=== PATIENT | male | born 1980 | race Caucasian/White ===

== ENCOUNTER 2023-11-09 11:14 | Observation (INO) ==
--- NOTE | 2023-11-09 11:27 | Emergency Department Note ---
History of Present Illness General Chief complaint: Referred by Doctor Stated complaint: HEMORRHOID Time Seen by Provider: 11/09/23 11:26 History of Present Illness Maximum Pain Intensity: 8 NAME: BETTINA CUELLAR AGE: 42 SEX: M : 1980 ARRIVES VIA: Walk-In INFORMANT: Patient ED PROVIDER(S): MUMTAZ Ly, Tavares Hein, The patient is a pleasant 42-year-old male who arrives to the emergency department for evaluation of a thrombosed hemorrhoid. He reports he was seen Monday by his primary care provider and diagnosed with a thrombosed hemorrhoid, he was provided rectal hydrocortisone cream and oxycodone for pain control. He states he was told to come to the emergency department if the pain worsened. He denies any history of hemorrhoids, he denies any rectal bleeding. He denies fever, abdominal pain, nausea or vomiting. He states he had an episode of diarrhea the Monday before 01 November, where he noticed some slight blood in his diarrhea. He states after that time he was pushing more than normal and attempt to have a bowel movement. He states his symptoms resolved, until this past week. Home Medications Medication Instructions Recorded Confirmed Type atorvastatin 20 mg tablet 20 mg PO QPM #90 tabs 05/18/23 11/09/23 Rx telmisartan 40 mg tablet 40 mg PO DAILY #90 tabs 10/13/23 11/09/23 Rx tirzepatide (weight loss) 2.5 2.5 mg subcut WK 10/24/23 11/09/23 History mg/0.5 mL subcutaneous pen injector (Zepbound) hydrocortisone 2.5 % topical cream 1 applic [place] QID PRN hemorrhoids 11/07/23 11/09/23 Rx with perineal applicator #30 grams (Proctozone-HC) hydrocodone 5 mg-acetaminophen 325 1 - 2 tab PO UD PRN pain 11/09/23 11/09/23 History mg tablet omega 9-rjd-pbt-fish oil 1,200 mg 1 cap PO DAILY 11/09/23 11/09/23 History (144 mg-216 mg) capsule (Fish Oil) Allergies Allergy/AdvReac Type Severity Reaction Status Date / Time piperacillin [From Zosyn] Allergy Severe Verified 11/09/23 14:43 tazobactam [From Zosyn] Allergy Severe Verified 11/09/23 14:43 Sulfa (Sulfonamide Allergy Verified 11/09/23 14:16 Antibiotics) Past Med/Surg History Problem List (Updated 11/09/23 @ 17:38 by MUMTAZ Solis) Pain, rectum (Acute) Perianal abscess (Acute) Hypertension Unwanted fertility Anxiety (Acute) Dyslipidemia (Acute) Impaired fasting glucose (Acute) Obesity (Acute) Medical History Motion sickness Surgical History H/O vasectomy 08/2023 Family History Father Hypertension Grandfather Colon cancer Prostate cancer Hypertension Grandmother Diabetes Hypertension Denies family history of Ovarian cancer Myocardial infarction Breast cancer Social History Smoking Status: Never smoker Tobacco Type: Cigarettes Age Started Using Tobacco: 20; Age Quit Using Tobacco: 28; packs per day: 0.75; Second Hand Exposure: No; Do You Dip or Chew Tobacco: No; Hx Alcohol Use: Yes Alcohol Intake Frequency Comment: SOCIAL Hx Substance Use: No Preferred Language: Luxembourgish Communication Ability: Effective Visual Impairment: No Limitations Hearing Ability: Normal Pantographer Required: No Beliefs That Will Affect Care: None marital status: Current Living Situation: Family current occupational status: employed current occupation: [employer] How many Children do You have: 2 Feels Safe at Home: Yes Childhood Exposure to Second-Hand Smoke: No Diet: other Diet Comment: WEIGHT WATCHERS caffeine: No during the past year weight has: remained stable Dental Care, Regularly: Yes Physical Activity Frequency: Daily Seatbelt Use: always Sunscreen Use: Yes Physical Exam Vital Signs Vital Signs - 24 hr 11/09/23 11:19 11/09/23 12:08 11/09/23 13:45 Temperature 36.2 C L Temperature Source Temporal Artery Scan Pulse Rate 113 H Pulse Rate [Right Finger] 103 H 99 H Pulse Rhythm Regular Pulse Rhythm [Right Finger] Regular Pulse Strength Normal Pulse Strength [Right Finger] Normal Respiratory Rate 16 16 18 Respiratory Effort / Characteristics Non-Labored Non-Labored Spontaneous Non-Labored Respiratory Depth Normal Normal Normal Respiratory Pattern Regular Regular Regular Blood Pressure 113/74 Blood Pressure [Left Arm] 121/70 128/73 Blood Pressure Mean 87 Blood Pressure Mean [Left Arm] 87 91 Blood Pressure Position [Left Arm] Right Lateral Lying Pulse Oximetry 99 98 97 Oxygen Delivery Method Room Air Room Air Room Air Sepsis Recent Fever Within 48 Hours No Sepsis New/Unexplained Change in Mental Status N/A Sepsis Action Taken by Nursing No Action Required 11/09/23 17:15 Temperature Temperature Source Pulse Rate Pulse Rate [Right Finger] 106 H Pulse Rhythm Pulse Rhythm [Right Finger] Regular Pulse Strength Pulse Strength [Right Finger] Respiratory Rate 18 Respiratory Effort / Characteristics Respiratory Depth Normal Respiratory Pattern Blood Pressure Blood Pressure [Left Arm] 127/78 Blood Pressure Mean Blood Pressure Mean [Left Arm] 94 Blood Pressure Position [Left Arm] Pulse Oximetry 96 Oxygen Delivery Method Sepsis Recent Fever Within 48 Hours Sepsis New/Unexplained Change in Mental Status Sepsis Action Taken by Nursing VITALS: Vitals are noted on the nurse's note and reviewed by myself. Vital signs stable. GENERAL: 42-year-old male, in no acute distress, nondiaphoretic, well-developed well-nourished. SKIN: There is an area of induration present lateral to the left side of the rectum, in the buttocks. No visible hemorrhoid present, no bleeding present, no drainage present. HEAD: Normocephalic atraumatic. HEART: Regular rate and rhythm without murmurs gallops or rubs. LUNGS: Clear to auscultation bilaterally without wheezes, rales or rhonchi. No retractions or accessory muscle use. ABDOMEN: Positive bowel sounds x 4. Soft, nontender, without masses or organomegaly. Simon sign negative. No guarding or rebound tenderness. MUSCULOSKELETAL: No muscle atrophy, erythema, or edema noted. Strength 5/5 throughout. NEURO: Patient was alert and oriented to person place and time. No focal neurological deficits. Course Administered Medications Discontinued Medications Diphenhydramine HCl (Diphenhydramine 50 Mg/Ml Vial) Confirm Administered Dose 50 mg .ROUTE .STTapPress-MED ONE Stop: 11/09/23 14:41 Last Admin: 11/09/23 14:42 Dose: 50 mg Documented By: NAY Diphenhydramine HCl (Diphenhydramine 50 Mg/Ml Vial) 50 mg IV NOW STA Stop: 11/09/23 14:43 Last Admin: 11/09/23 14:47 Dose: Not Given Documented By: NAY Famotidine (Famotidine 20mg/5ml Iv Push) Confirm Administered Dose 20 mg IV .STK-MED ONE Stop: 11/09/23 14:41 Last Admin: 11/09/23 14:42 Dose: 20 mg Documented By: NAY Sodium Chloride (Nss) 1,000 mls @ 999 mls/hr IV .Q1H1M ONE Stop: 11/09/23 12:55 Last Infusion: 11/09/23 12:40 Dose: Infused Documented By: Admin: 11/09/23 12:13 Dose: 999 mls/hr Documented By: MICKY Acetaminophen (Ofirmev) 1,000 mg in 100 mls @ 400 mls/hr IV NOW STA Stop: 11/09/23 12:09 Last Infusion: 11/09/23 12:39 Dose: Infused Documented By: Admin: 11/09/23 12:14 Dose: 400 mls/hr Documented By: MICKY Piperacillin Sod/Tazobactam Sod (Zosyn) 4.5 gm in 100 mls @ 200 mls/hr IV NOW ONE Stop: 11/09/23 14:40 Last Infusion: 11/09/23 14:25 Dose: 0 mls/hr Documented By: Admin: 11/09/23 14:22 Dose: 200 mls/hr Documented By: KAMILLE Famotidine (Pepcid 20mg Iv Push) 20 mg in 5 mls @ 2.5 mls/min IV NOW STA Stop: 11/09/23 14:43 Last Admin: 11/09/23 14:47 Dose: Not Given Documented By: NAY Ceftriaxone Sodium (Rocephin) 2,000 mg in 50 mls @ 100 mls/hr IV NOW STA Stop: 11/09/23 15:26 Last Infusion: 11/09/23 15:50 Dose: Infused Documented By: Admin: 11/09/23 15:22 Dose: 100 mls/hr Documented By: MEME Metronidazole (Flagyl) 500 mg in 100 mls @ 100 mls/hr IV NOW STA; Protocol Stop: 11/09/23 15:56 Last Admin: 11/09/23 15:47 Dose: 100 mls/hr Documented By: AUREA Ioversol (Optiray 320 100ml) 94 ml IV ONCE ONE Stop: 11/09/23 13:24 Last Admin: 11/09/23 13:18 Dose: 94 ml Documented By: ROSARIO Ketorolac Tromethamine (Ketorolac Tromethamine 15 Mg/Ml Vial) 15 mg IV NOW ONE Stop: 11/09/23 11:56 Last Admin: 11/09/23 12:13 Dose: 15 mg Documented By: MICKY Methylprednisolone (Methylprednisolone 125 Mg/2 Ml Vial) 125 mg IV NOW STA Stop: 11/09/23 14:43 Last Admin: 11/09/23 14:44 Dose: 125 mg Documented By: NAY Medical Decision Making Differential Diagnosis Rectal abscess, cellulitis, infection, mass, fistula, hemorrhoid, as well as other pathologies Medical Records Attestation: I reviewed the patient's medical records. Home Medications Current Medication List: was personally reviewed by me Laboratory Data Attestation: I reviewed the patient's lab results. CBC shows a slight leukocytosis, stable hemoglobin and hematocrit, CMP shows no significant electrolyte abnormalities, urinalysis negative for infection. 11/09/23 12:02 11/09/23 12:02 Lab Results 11/09/23 11/09/23 Range/Units 12:02 12:42 WBC 12.80 H (4.8-10.8) K/ul RBC 4.98 (4.70-6.10) M/uL Hgb 14.4 (14.0-18.0) g/dl Hct 41.9 L (42.0-52.0) % MCV 84.1 (80.0-100.0) fL MCH 28.9 (25.0-34.0) pg MCHC 34.4 (32.0-36.0) g/dL RDW Std Deviation 38.9 (36.4-46.3) fL RDW Coeff of Christian 12.8 (11.5-14.5) % Plt Count 215 (130-400) K/uL MPV 10.7 (9.4-12.4) fL Immature Gran % (Auto) 0.3 % Neut % (Auto) 80.6 % Lymph % (Auto) 7.8 % [place] % (Auto) 10.8 % Eos % (Auto) 0.3 % Baso % (Auto) 0.2 % Neut # (Auto) 10.31 H (1.40-6.50) K/uL Lymph # (Auto) 1.00 L (1.20-3.40) K/uL [place] # (Auto) 1.38 H (0.11-0.59) K/uL Eos # (Auto) 0.04 (0.00-0.50) K/uL Baso # (Auto) 0.03 (0.00-0.20) K/uL Immature Gran # (Auto) 0.04 (0.01-0.20) K/uL Sodium 137 (136-145) mmol/L Potassium 4.0 (3.5-5.1) mmol/L Chloride 102 (98-107) mmol/L Carbon Dioxide 26 (21-32) mmol/L Anion Gap 9 (3-11) BUN 19 (6-23) mg/dl Creatinine 1.15 (0.6-1.4) mg/dl Est Cr Clr Drug Dosing 107.1 ml/min Est GFR ( Amer) 91.7 ml/min Est GFR (Non-Af Amer) 79.2 ml/min BUN/Creatinine Ratio 16.5 (10-20) Glucose 101 H (70-99(Fasting)) mg/dl Calcium 9.8 (8.6-10.3) mg/dl Total Bilirubin 0.8 (0.2-1.0) mg/dl AST 18 (13-39) U/L ALT 19 (7-52) U/L Alkaline Phosphatase 69 (34-104) U/L Total Protein 7.8 (6.0-8.3) gm/dl Albumin 4.1 (3.4-5.0) gm/dl Globulin 3.7 (2.5-4.0) gm/dl Albumin/Globulin Ratio 1.1 (0.9-2) Urine Color Yellow Urine Appearance Clear (Clear) Urine pH 5.5 (4.5-7.5) Ur Specific [place] 1.026 (1.000-1.030) Urine Protein Trace H (Negative) Urine Glucose (UA) Negative (Negative) Urine Ketones 1+ H (Negative) Urine Blood Negative (Negative) Urine Nitrite Negative (Negative) Urine Bilirubin Negative (Negative) Urine Urobilinogen Negative (Negative) Ur Leukocyte Esterase Negative (Negative) Urine WBC (Auto) 0-5 (0-5) /hpf Urine RBC (Auto) 0-2 (0-2) /hpf U Hyaline Cast (Auto) 3-5 H (0-2) /lpf U Epithel Cells (Auto) 0-2 (0-2) /hpf Urine Bacteria (Auto) None Seen (None Seen) Imaging Data Attestation: I personally reviewed and interpreted this imaging study as follows: My Impression: Perirectal abscess present, to the left of the rectum. Will await formal radiology report. Radiologist's Impression: Pelvis CT 11/09/23 11:55 CT pelvis w/IV con only HISTORY: 42 years-old Male r/o rectal abscess acute rectal pain with possible rectal abscess. COMPARISON: None TECHNIQUE: Multiple axial CT images of the pelvis were obtained with IV contrast. A dose lowering technique was used consistent with the principals of VALERIY. FINDINGS: Images intrapelvic structures are unremarkable. Normal appendix. Mild colonic diverticulosis. No free fluid. Mild prostatomegaly. Surgical clips of the scrotum. There is a peripherally enhancing perianal fluid collection on image 197 series 3 measuring 5.8 x 2.0 x 4.2 cm extending towards the left medial gluteal fold. Possible underlying perianal fistula. Moderate associated cellulitis. IMPRESSION: 1. 5.8 cm perianal abscess with possible associated perianal fistula. 2. No supralevator extension. ACT 112: Negative or not required by law. The above report was generated using voice recognition software. It may contain grammatical, syntax or spelling errors. Electronically signed by: Jose Luis Bhatt M.D. 11/09/2023 1:52 PM Blood Pressure Blood Pressure Findings: Normal blood pressure MDM Narrative The patient is a pleasant 42-year-old male who arrives to the emergency department with his for the above-stated complaint. Upon examination with the use of a clinical exercise specialist, the patient has no visible hemorrhoid present. There does appear to be an area of induration just left of the rectum, with a surrounding cellulitis. A saline lock was established, CBC, CMP, urinalysis obtained. CBC shows no leukocytosis, stable hemoglobin and hematocrit, CMP is unremarkable, urinalysis is negative for infection. CT imaging of the pelvis with IV contrast was obtained, which shows a 5.9 cm perirectal abscess with likely perirectal fistula. Is able to contact general surgery to evaluate the patient. In the interim while awaiting a return call I started the patient on IV Zosyn. Within 2 minutes of beginning administration the patient began to have a severe allergic reaction. Nursing staff alerted me immediately. The patient was administered IV Benadryl, IV Pepcid, and IV Solu-Medrol. Within a few moments the reaction began to resolve. The patient had no airway involvement, angioedema, or tongue swelling. I did alert my attending, Dr. Hein. He was able to evaluate the patient at bedside to determine if administration of epi was warranted. The patient did not require epi administration, as he was having resolution of symptoms without. Antibiotic administration was changed to Rocephin and metronidazole. Dr. Nicolas from general surgery did agree to accept the patient. Please refer to his documentation for further patient care. At transition of care the patient had stable vital signs, and resolution of the allergic reaction. The patient's case was discussed with Dr. Hein, who agreed with my evaluation and treatment plan. Continuous rn embedded: Order was placed for continuous rn embedded. Patient was placed on the rn embedded. Patient was noted to be in sinus tachycardia at an initial rate of 113 bpm. Impression & Plan Perianal abscess, Pain, rectum Discharge Plan Visit Data Chief Complaint: Referred by Doctor Stated Complaint: HEMORRHOID ED Provider: Tavares Hein ED Midlevel Provider: Jihan Glasgow Discharge Problem: Perianal abscess, Pain, rectum Forms Stand Alone Forms: [facility] [employer] Prescriptions Prescriptions: No Action telmisartan 40 mg tablet 40 mg PO DAILY Qty: 90 2RF atorvastatin 20 mg tablet 20 mg PO QPM Qty: 90 2RF hydrocortisone [Proctozone-HC] 2.5 % cream with perineal applicator 1 applic IL QID PRN (Reason: hemorrhoids) Qty: 30 0RF Zepbound 2.5 mg/0.5 mL pen injector 2.5 mg subcut WK Rx Instructions: Monday hydrocodone-acetaminophen 5-325 mg tablet 1 - 2 tab PO UD PRN (Reason: pain) Rx Instructions: 1-2 tabs PO Q4-6 HRS PRN; omega 8-chm-dho-fish oil [Fish Oil] 1,200 (144-216) mg Capsule 1 cap PO DAILY Referrals Referrals: Cristian Slade CRNP [Primary Care Provider] -
[2023-11-09] MEDS: SODIUM CHLORIDE 0.9% 1,000 ML IV ONE (12:13)
[2023-11-09] MEDS: KETOROLAC TROMETHAMINE 15 MG/ML VIAL IV ONE (12:13)
[2023-11-09] MEDS: ACETAMINOPHEN 1,000 MG/100 ML VIAL IV STA (12:14)
[2023-11-09 12:27] LABS: Basophils # (auto) 0.03 K/uL (0.00-0.20); Basophils % (auto) 0.2 %; Eosinophils # (auto) 0.04 K/uL (0.00-0.50); Eosinophils % (auto) 0.3 %; Hematocrit (blood only) 41.9 % (42.0-52.0); Hemoglobin 14.4 g/dl (14.0-18.0); Immature Granulocytes # (auto) 0.04 K/uL (0.01-0.20); Immature Granulocytes % (auto) 0.3 %; Lymphocytes % (auto) 7.8 %; Mean Corpuscular Hemoglobin 28.9 pg (25.0-34.0); Mean Corpuscular Hgb Conc 34.4 g/dL (32.0-36.0); Mean Corpuscular Volume 84.1 fL (80.0-100.0); Mean Platelet Volume 10.7 fL (9.4-12.4); Monocytes # (auto) 1.38 K/uL (0.11-0.59); Monocytes % (auto) 10.8 %; Neutrophils # (auto) 10.31 K/uL (1.40-6.50); Neutrophils % (auto) 80.6 %; Platelet Count 215 K/uL (130-400); RDW Coefficient of Variation 12.8 % (11.5-14.5); RDW Standard Deviation 38.9 fL (36.4-46.3); Red Blood Count 4.98 M/uL (4.70-6.10)
[2023-11-09 12:42] LABS: Albumin Globulin Ratio 1.1 (0.9-2); Albumin Level 4.1 gm/dl (3.4-5.0); BUN Creatinine Ratio 16.5 (10-20); Bilirubin,Total 0.8 mg/dl (0.2-1.0); Calcium 9.8 mg/dl (8.6-10.3); Creatinine Clr Calc Pharmacy 107.1 ml/min; Est GFR (African American) 91.7 ml/min; Est GFR (Non-African American) 79.2 ml/min; Globulin 3.7 gm/dl (2.5-4.0); Total Protein 7.8 gm/dl (6.0-8.3)
[2023-11-09 12:55] LABS: Appearance Urine Clear (Clear); Bacteria Urine Automated None Seen (None Seen); Bilirubin Urine Negative (Negative); Blood Urine Negative (Negative); Color Urine Yellow; Epithelial Cell Urine Auto 0-2 /hpf (0-2); Glucose Urine UA Negative (Negative); Ketones Urine 1+ (Negative); Leukocyte Esterase Urine Negative (Negative); Nitrite Urine Negative (Negative); Protein Urine Trace (Negative); RBC Urine Automated 0-2 /hpf (0-2); Specific Gravity Urine 1.026 (1.000-1.030); Urobilinogen Urine Negative (Negative); WBC Urine Automated 0-5 /hpf (0-5); pH Urine 5.5 (4.5-7.5)
[2023-11-09] MEDS: OPTIRAY 320 100ml IV ONE (13:18)
--- NOTE | 2023-11-09 13:53 | CT Scan Report ---
CT pelvis w/IV con only HISTORY: 42 years-old Male r/o rectal abscess acute rectal pain with possible rectal abscess. COMPARISON: None TECHNIQUE: Multiple axial CT images of the pelvis were obtained with IV contrast. A dose lowering bhavik hnique was used consistent with the principals of VALERIY. FINDINGS: Images intrapelvic structures are unremarkable. Normal appendix. Mild colonic diverticulosis. No free fluid. Mild prostatomegaly. Surgical clips of the scrotum. There is a peripherally enhancing perianal fluid collection on image 197 series 3 measuring 5.8 x 2.0 x 4.2 cm extending towards the left medial gluteal fold. Possible underlying perianal fistula. Moder ate associated cellulitis. IMPRESSION: 1. 5.8 cm perianal abscess with possible associated perianal fistula. 2. No supralevator extension. ACT 112: Negative or not required by law. The above report was generated using voice recognition software. It may contain grammatical, syntax o r spelling errors. Electronically signed by: Jose Luis Bhatt M.D. 11/09/2023 1:52 PM
[2023-11-09] MEDS: PIPERACILLIN/TAZOBACTAM 4.5 GM/100 ML BAG IV ONE (14:22)
[2023-11-09] MEDS: FAMOTIDINE 20MG/5ML IV PUSH IV ONE (14:42)
[2023-11-09] MEDS: diphenhydrAMINE 50 MG/ML VIAL ONE (14:42)
[2023-11-09] MEDS: methylPREDNISolone 125 MG/2 ML VIAL IV STA (14:44)
[2023-11-09] MEDS: FAMOTIDINE 20MG IV PUSH 20 MG/5 ML SYR IV STA (14:47)
[2023-11-09] MEDS: diphenhydrAMINE 50 MG/ML VIAL IV STA (14:47)
--- NOTE | 2023-11-09 14:50 | History & Physical Report ---
Date of Service November 09, 2023 Assessment & Plan (1) Perianal abscess: Plan: Patient presented to the [facility] ER today with c/o rectal pain that has been present since last Monday. He reports the pain has progressively gotten worse over the last few days and has been having associated chills. He denies constipation, change in bowel habits, fever, nausea, vomiting, drainage from rectum or bleeding. CT scan pelvis reading 5.8 cm perianal abscess with possible associated perianal fistula. The patient has an elevated wbc count at 12. On exam left side rectum is more tender and painful, firm and warm to touch. Recommending the patient have an incision and drainage in the operating room with Dr. Nicolas. Procedure explained and questions answered. The patient would like to proceed with surgical intervention. He was given zosyn in the ER. Keep NPO IV Fluids for hydration IV analgesic Timing of procedure will depend on schedule of the OR , most likely will be later this afternoon. as above. discussed options/risks. questions answered. will proceed with incision and drainage today. History of Present Illness Chief Complaint: perianal abscess Primary Care Provider: MUMTAZ Velazquez Patient is a pleasant 42 yo male with PMH HTN, HLD , obesity that presented to the [facility] ER today with c/o rectal pain that has been present since last Monday. He reports the pain has progressivly gotten worse over the last few days and has been having associated chills. He denies constipation, change in bowel habits, fever, nausea, vomiting, drainage from rectum or bleeding, has not had a colonoscopy. He has been NPO since yesterday and took a sip of water at 1100 today. Does not take blood thinners. Allergies Allergy/AdvReac Type Severity Reaction Status Date / Time piperacillin [From Zosyn] Allergy Severe Verified 11/09/23 14:43 tazobactam [From Zosyn] Allergy Severe Verified 11/09/23 14:43 Sulfa (Sulfonamide Allergy Verified 11/09/23 14:16 Antibiotics) Home Medications Medication Instructions Recorded Confirmed Type atorvastatin 20 mg tablet 20 mg PO QPM #90 tabs 05/18/23 11/09/23 Rx telmisartan 40 mg tablet 40 mg PO DAILY #90 tabs 10/13/23 11/09/23 Rx tirzepatide (weight loss) 2.5 2.5 mg subcut WK 10/24/23 11/09/23 History mg/0.5 mL subcutaneous pen injector (Zepbound) hydrocortisone 2.5 % topical cream 1 applic [place] QID PRN hemorrhoids 11/07/23 11/09/23 Rx with perineal applicator #30 grams (Proctozone-HC) hydrocodone 5 mg-acetaminophen 325 1 - 2 tab PO UD PRN pain 11/09/23 11/09/23 History mg tablet omega 4-cfu-dzd-fish oil 1,200 mg 1 cap PO DAILY 11/09/23 11/09/23 History (144 mg-216 mg) capsule (Fish Oil) Past Med/Surg History Problem List (Updated 11/09/23 @ 14:43 by MUMTAZ Lugo) Perianal abscess Hypertension Unwanted fertility Anxiety (Acute) Dyslipidemia (Acute) Impaired fasting glucose (Acute) Obesity (Acute) Medical History Motion sickness Surgical History H/O vasectomy 08/2023 Family History Father Hypertension Grandfather Colon cancer Prostate cancer Hypertension Grandmother Diabetes Hypertension Denies family history of Ovarian cancer Myocardial infarction Breast cancer Social History Smoking Status: Never smoker Tobacco Type: Cigarettes Age Started Using Tobacco: 20; Age Quit Using Tobacco: 28; packs per day: 0.75; Second Hand Exposure: No; Do You Dip or Chew Tobacco: No; Hx Alcohol Use: Yes Alcohol Intake Frequency Comment: SOCIAL Hx Substance Use: No Preferred Language: Belarusian Communication Ability: Effective Visual Impairment: No Limitations Hearing Ability: Normal Helicopter Utility Aircrewman Required: No Beliefs That Will Affect Care: None marital status: Current Living Situation: Family current occupational status: employed current occupation: [employer] How many Children do You have: 2 Feels Safe at Home: Yes Childhood Exposure to Second-Hand Smoke: No Diet: other Diet Comment: WEIGHT WATCHERS caffeine: No during the past year weight has: remained stable Dental Care, Regularly: Yes Physical Activity Frequency: Daily Seatbelt Use: always Sunscreen Use: Yes Review of Systems Constitutional: + chills; no fever Respiratory: no cough and no dyspnea Cardiovascular: no chest pain Gastrointestinal: no abdominal pain, no nausea and no vomiting Musculoskeletal: no muscle weakness Integumentary: no rash Physical Exam Constitutional: well developed, cooperative and comfortable; no acute distress Respiratory: normal respiratory effort and able to speak in complete sentences; no respiratory distress Cardiovascular: Rate/Rhythm: + tachycardic (99) Gastrointestinal (Abdomen): Inspection/Auscultation: abdomen not distended Rectal Exam: + rectal tenderness; no hemorrhoids Musculoskeletal: no cyanosis or clubbing, extremities motor strength 5/5 Results & Data Results & Data Vital Signs (Past 12 Hours) Vital Signs Temp Pulse Pulse Resp BP BP Pulse Ox 11/09/23 13:45 99 H 18 128/73 97 11/09/23 12:08 103 H 16 121/70 98 11/09/23 11:19 97.2 F L 113 H 16 113/74 99 O2 Del Method 11/09/23 13:45 Room Air 11/09/23 12:08 Room Air 11/09/23 11:19 Room Air Diagnostic Findings [place], [place] [phone] CT Scan Report Patient: BETTINA CUELLAR Admit Date: 11/09/23 MR#: [id number] Address1: [facility] [address] KELLER Acct ID:[id number] Address2: Date: 1980 [facility] Zip: [place] [address] Age: 42 Location: ED Sex: M Room/Bed: Att Phy: Diagnosis: HEMORRHOID Isabela Phy: Cristian Slade CRNP Service Date: 11/09/23 [facility] Phy: Interpreting Phy: Jose Luis Renae Phy: Ordering Phy: Jihan Glasgow CRNP cc: ~ CT pelvis w/IV con only HISTORY: 42 years-old Male r/o rectal abscess acute rectal pain with possible rectal abscess. COMPARISON: None TECHNIQUE: Multiple axial CT images of the pelvis were obtained with IV contrast. A dose lowering technique was used consistent with the principals of A CASSIE. FINDINGS: Images intrapelvic structures are unremarkable. Normal appendix. Mild colonic diverticulosis. No free fluid. Mild prostatomegaly. Surgical clips of the scrotum. There is a peripherally enhancing perianal fluid collection on image 197 series 3 measuring 5.8 x 2.0 x 4.2 cm extending towards the left medial gluteal fold. Possible underlying perianal fistula. Moderate associated cellulitis. IMPRESSION: 1. 5.8 cm perianal abscess with possible associated perianal fistula. 2. No supralevator extension. ACT 112: Negative or not required by law. The above report was generated using voice recognition software. It may contain grammatical, syntax or spelling errors. Electronically signed by: Jose Luis Bhatt M.D. 11/09/2023 1:52 PM Dictated: 11/09/23 1349 Transcribed: 11/09/231348 CBC w Diff Results Results CBC w Diff Results: RBC 4.98 M/uL (4.70-6.10) 11/09/23 WBC 12.80 K/ul (4.8-10.8) H 11/09/23 Hgb 14.4 g/dl (14.0-18.0) 11/09/23 Hct 41.9 % (42.0-52.0) L 11/09/23 MCV 84.1 fL (80.0-100.0) 11/09/23 MCH 28.9 pg (25.0-34.0) 11/09/23 MCHC 34.4 g/dL (32.0-36.0) 11/09/23 RDW Standard Deviation 38.9 fL (36.4-46.3) 11/09/23 RDW Coefficient of Variation 12.8 % (11.5-14.5) 11/09/23 Plt Count 215 K/uL (130-400) 11/09/23 MPV 10.7 fL (9.4-12.4) 11/09/23 Neutrophils (%) (Auto) 80.6 % 11/09/23 Lymphocytes (%) (Auto) 7.8 % 11/09/23 Monocytes # (Auto) 1.38 K/uL (0.11-0.59) H 11/09/23 Eosinophils # (Auto) 0.04 K/uL (0.00-0.50) 11/09/23 Immature Granulocyte % (Auto) 0.3 % 11/09/23 Neutrophils # (Auto) 10.31 K/uL (1.40-6.50) H 11/09/23 Lymphocytes # (Auto) 1.00 K/uL (1.20-3.40) L 11/09/23 Monocytes # (Auto) 1.38 K/uL (0.11-0.59) H 11/09/23 Eosinophils # (Auto) 0.04 K/uL (0.00-0.50) 11/09/23 Basophils # (Auto) 0.03 K/uL (0.00-0.20) 11/09/23 Immature Granulocyte # (Auto) 0.04 K/uL (0.01-0.20) 4 PG Care Time/CCT Total # of Minutes Spent Total Time Spent with Patient: Total time spent is greater than 50% in coordination of care (as documented) at patient's floor/unit and/or counseling patient: Coding Level of Care Code 88289 INT INP/OBS CARE 140MIN Diagnoses Perianal abscess K61.0
--- NOTE | 2023-11-09 14:57 | Emergency Department Note ---
ED Visit Note Staff note: I have seen and examined this patient. I have discussed this case with my PA and generally agree with the ED note and findings. Patient received IV Zosyn for perianal abscess with questionable fistula. General surgery was consulted and awaiting their recommendations. Patient broke out in a rash 2 minutes after receiving the IV Zosyn. Only previous allergy was to sulfa. He broke out in diffuse erythema. He denies any itching. No trouble breathing or swallowing. He was given 125 Solu-Medrol, IV Pepcid and 50 mg of Benadryl IV as well as IV fluids. He was evaluated initially upon this occurring and 5 minutes following which she notes his symptoms are improving significantly. He still has no trouble breathing or swallowing. He will continue to be monitored closely.'s please see her note for further details. Will hold on epinephrine at this time. .
[2023-11-09] MEDS: cefTRIAXone SODIUM 2,000 MG/50 ML BAG IV STA (15:22)
[2023-11-09] MEDS: metroNIDAZOLE 500 MG/100 ML BAG IV STA (15:47)
--- NOTE | 2023-11-09 17:57 | Anesthesiology Consultation ---
Date of Service November 09, 2023 Assessment & Plan Chart Review Chart Review: Acceptable Risk for Surgery and Patient NOT seen in Pre Admission Testing Consults Requested none History Surgery Operation Date: 11/09/23 11:10 Proposed Procedures p Perianal Abscess Incision and Drainage - Cristian Nicolas DO Height/Weight Height: 5 ft 9 in Weight: 115.6 kg Allergies Allergy/AdvReac Type Severity Reaction Status Date / Time piperacillin [From Zosyn] Allergy Severe Verified 11/09/23 14:43 tazobactam [From Zosyn] Allergy Severe Verified 11/09/23 14:43 Sulfa (Sulfonamide Allergy Verified 11/09/23 14:16 Antibiotics) Medications Home Medications Medication Instructions Recorded Confirmed Last Taken atorvastatin 20 mg tablet 20 mg PO QPM #90 tabs 05/18/23 11/09/23 11/08/23 telmisartan 40 mg tablet 40 mg PO DAILY #90 tabs 10/13/23 11/09/23 11/09/23 tirzepatide (weight loss) 2.5 2.5 mg subcut WK 10/24/23 11/09/23 11/03/23 mg/0.5 mL subcutaneous pen injector (Zepbound) hydrocortisone 2.5 % topical cream 1 applic [place] QID PRN hemorrhoids 11/07/23 11/09/23 11/09/23 with perineal applicator #30 grams (Proctozone-HC) hydrocodone 5 mg-acetaminophen 325 1 - 2 tab PO UD PRN pain 11/09/23 11/09/23 11/08/23 mg tablet omega 5-zhg-myv-fish oil 1,200 mg 1 cap PO DAILY 11/09/23 11/09/23 11/09/23 (144 mg-216 mg) capsule (Fish Oil) Past Medical History Medical History Motion sickness Past Family History Family History Father Hypertension Grandfather Colon cancer Prostate cancer Hypertension Grandmother Diabetes Hypertension Denies family history of Ovarian cancer Myocardial infarction Breast cancer Past Surgical History Surgical History H/O vasectomy 08/2023 Social History Smoking Status: Never smoker Do You Dip or Chew Tobacco: No Hx Alcohol Use: Yes Hx Substance Use: No Review of Systems Constitutional: + chills; no fever Respiratory: no cough and no dyspnea Cardiovascular: no chest pain Gastrointestinal: no abdominal pain, no nausea and no vomiting Musculoskeletal: no muscle weakness Integumentary: no rash Physical Exam Vital Signs Last Vital Signs Temp 36.2 C L 11/09/23 11:19 Pulse 106 H 11/09/23 17:15 Resp 18 11/09/23 17:15 BP 127/78 11/09/23 17:15 Pulse Ox 96 11/09/23 17:15 O2 Del Method Room Air 11/09/23 13:45 Constitutional well developed, cooperative and comfortable; no acute distress Respiratory normal respiratory effort and able to speak in complete sentences; no respiratory distress Cardiovascular Rate/Rhythm: + tachycardic (99) Gastrointestinal (Abdomen) Inspection/Auscultation: abdomen not distended Rectal Exam: + rectal tenderness; no hemorrhoids Musculoskeletal no cyanosis or clubbing, extremities motor strength 5/5 Testing Laboratory Results 11/09/23 12:02 11/09/23 12:02 Urine Color Yellow 11/09/23 12:42 Urine Appearance Clear (Clear) 11/09/23 12:42 Urine pH 5.5 (4.5-7.5) 11/09/23 12:42 Ur Specific [place] 1.026 (1.000-1.030) 11/09/23 12:42 Urine Protein Trace (Negative) H 11/09/23 12:42 Urine Glucose (UA) Negative (Negative) 11/09/23 12:42 Urine Ketones 1+ (Negative) H 11/09/23 12:42 Urine Nitrite Negative (Negative) 11/09/23 12:42 Ur Leukocyte Esterase Negative (Negative) 11/09/23 12:42 Urine WBC (Auto) 0-5 /hpf (0-5) 11/09/23 12:42 Urine RBC (Auto) 0-2 /hpf (0-2) 11/09/23 12:42 U Hyaline Cast (Auto) 3-5 /lpf (0-2) H 11/09/23 12:42 U Epithel Cells (Auto) 0-2 /hpf (0-2) 11/09/23 12:42 Urine Bacteria (Auto) None Seen (None Seen) 11/09/23 12:42
[2023-11-09] MEDS ORDERED: fentaNYL citrate PF 100 MCG/2 ML VIAL ONE (20:14)
[2023-11-09] MEDS ORDERED: ONDANSETRON INJ 2 MG/ML 2 ML VIAL ONE (20:30)
[2023-11-09] MEDS: CLINDAMYCIN/D5W 900 MG/50 ML BAG IV SCH (20:39)
[2023-11-09] MEDS: BUPIVACAINE/EPINEPHRINE 0.5% MPF 1:200,000 30 ML VIAL ONE (20:55)
--- NOTE | 2023-11-09 21:14 | Operative Report ---
PG Post Operative Report Pre & Post Diagnosis Operation Date: 11/09/23 11:10 Pre-Op Diagnosis: Perianal Abscess Post-Op Diagnosis: Perianal Abscess I identified the patient and participated in the time-out.: Yes Procedure Operation Date: 11/09/23 11:10 Actual Procedures p Perianal Abscess Incision and Drainage(Not Applicable) - Cristian Nicolas DO Surgeon Cristian Nicolas DO Assistant Buyer n/a Estimated Blood Loss 25 Findings Consistent with Post-Op Diagnosis Specimens abcess fluid for gram stain/culture Description of Procedure After informed consent was obtained the patient was taken to the operating room and placed in supine position. After successful placement of a laryngeal mask airway the patient was placed into a high lithotomy position. The rectum and perineum were sterilely prepped and draped in usual fashion. The abscess itself was not truly palpable. I therefore used a spinal needle to access the cavity. I withdrew ambriz purulent fluid some of which was sent for Gram stain culture and sensitivity. I then used a 15 blade scalpel to make a linear incision directly over the site of the needlestick. Cautery was used to carry this through the initial subcutaneous tissue. I then used finger fractionation to enter the cavity. I did use a finder needle to continue to access the cavity itself as it was quite deep. The majority of the fluid I aspirated with a syringe. Once I could no longer aspirate any fluid I then thoroughly irrigated the wound. Half inch [place] was placed into the cavity and secured to the skin using 2-0 nylon. Marcaine with epinephrine was injected around for postoperative analgesia. Gauze tape and disposable underwear were placed. The patient was placed back into a supine position extubated and transferred recovery in stable condition. I attest to the content of the Intraoperative Record and any orders documented therein. Any exceptions are noted below.
--- NOTE | 2023-11-09 21:43 | Anesthesiology Progress Note ---
Date of Service November 09, 2023 Anesthesia Post Procedure Vital Signs Vital Signs: Temp Pulse Pulse Pulse Resp BP BP 11/09/23 21:30 99 H 17 102/61 11/09/23 21:20 104 H 18 98/56 L 11/09/23 21:10 36.0 C L 100 H 16 95/50 L 11/09/23 18:37 37.5 C 117 H 18 157/92 H 11/09/23 17:15 106 H 18 127/78 11/09/23 13:45 99 H 18 128/73 11/09/23 12:08 103 H 16 121/70 11/09/23 11:19 36.2 C L 113 H 16 113/74 Pulse Ox O2 Del Method 11/09/23 21:30 96 Room Air 11/09/23 21:20 95 Room Air 11/09/23 21:10 97 Room Air 11/09/23 18:37 98 Room Air 11/09/23 17:15 96 11/09/23 13:45 97 Room Air 11/09/23 12:08 98 Room Air 11/09/23 11:19 99 Room Air Pain Intensity Buttock: Pain Intensity: 3 Transfer of Care Handoff Completed per policy Notes Mental Status: alert / awake / arousable Patient Amnestic to Procedure: Yes Nausea / Vomiting: adequately controlled Pain: adequately controlled Airway Patency, RR, SpO2: stable & adequate BP & HR: stable & adequate Hydration State: stable & adequate Anesthetic Complications: no major complications apparent and Pt Satisfied with anesthetic care
[2023-11-09] MEDS ORDERED: oxyCODONE HCL IR 5 MG TAB (IMMEDIATE RELEASE) PO PRN ×2 (23:06)
[2023-11-09] MEDS ORDERED: IBUPROFEN 600 MG TAB PO PRN (23:06)
[2023-11-09] MEDS ORDERED: ONDANSETRON INJ 2 MG/ML 2 ML VIAL IV PRN (23:06)
[2023-11-09] MEDS ORDERED: HYDROmorphone INJ 0.5 MG/0.5 ML SYR IV PRN ×2 (23:06)
[2023-11-10] MEDS: metroNIDAZOLE 500 MG/100 ML BAG IV SCH (00:08)
[2023-11-10] MEDS: CIPROFLOXACIN / D5W 400 MG/200 ML BAG IV SCH (01:10)
[2023-11-10 09:03] LABS: Basophils # (auto) 0.01 K/uL (0.00-0.20); Basophils % (auto) 0.1 %; Hematocrit (blood only) 40.5 % (42.0-52.0); Hemoglobin 13.5 g/dl (14.0-18.0); Immature Granulocytes # (auto) 0.05 K/uL (0.01-0.20); Immature Granulocytes % (auto) 0.4 %; Lymphocytes # (auto) 0.56 K/uL (1.20-3.40); Lymphocytes % (auto) 4.9 %; Mean Corpuscular Hemoglobin 28.2 pg (25.0-34.0); Mean Corpuscular Hgb Conc 33.3 g/dL (32.0-36.0); Mean Corpuscular Volume 84.7 fL (80.0-100.0); Mean Platelet Volume 10.9 fL (9.4-12.4); Monocytes # (auto) 0.58 K/uL (0.11-0.59); Monocytes % (auto) 5.1 %; Neutrophils # (auto) 10.25 K/uL (1.40-6.50); Neutrophils % (auto) 89.5 %; Platelet Count 252 K/uL (130-400); RDW Coefficient of Variation 12.8 % (11.5-14.5); RDW Standard Deviation 39.7 fL (36.4-46.3); Red Blood Count 4.78 M/uL (4.70-6.10); White Blood Count 11.45 K/ul (4.8-10.8)
--- NOTE | 2023-11-10 09:07 | Surgery Progress Note ---
Date of Service November 10, 2023 Assessment & Plan (1) Perianal abscess: Plan: feeling much better. ok for d/c home antibiotics f/u next week for drain removal Admission and Anticipated Discharge Date Admission Date: November 09, 2023 Subjective pt seen. feeling much better Physical Exam Physical Exam: alert. nad dressing intact Results & Data Vital Signs (Past 12 Hours) Vital Signs Temp Pulse Pulse Resp BP Pulse Ox O2 Del Method 11/10/23 07:57 36.8 C 92 H 18 94/63 L 94 Room Air 11/10/23 07:23 36.8 C 85 20 109/68 98 Room Air 11/10/23 05:30 36.6 C 91 H 16 117/73 96 Room Air 11/10/23 01:25 36.7 C 82 16 140/79 97 Room Air 11/10/23 00:36 36.7 C 91 H 16 114/70 97 Room Air 11/09/23 23:06 36.6 C 96 H 16 128/82 98 Room Air 11/09/23 22:30 Room Air 11/09/23 22:30 37.0 C 85 16 111/70 99 Room Air 11/09/23 22:10 91 H 18 98/57 L 92 Room Air 11/09/23 21:55 92 H 16 105/61 93 Room Air 11/09/23 21:40 36.8 C 104 H 14 106/65 92 Room Air 11/09/23 21:30 99 H 17 102/61 96 Room Air 11/09/23 21:20 104 H 18 98/56 L 95 Room Air 11/09/23 21:10 36.0 C L 100 H 16 95/50 L 97 Room Air PG Care Time/CCT Total # of Minutes Spent Total Time Spent with Patient: Total time spent is greater than 50% in coordination of care (as documented) at patient's floor/unit and/or counseling patient: Coding Level of Care Code 70381 Post Operative Follow-Up Diagnoses Perianal abscess K61.0
--- NOTE | 2023-11-10 10:45 | Discharge Summary ---
Date of Service November 10, 2023 Admission HPI Per Admitting Provider Patient is a pleasant 42 yo male with PMH HTN, HLD , obesity that presented to the [facility] ER today with c/o rectal pain that has been present since last Monday. He reports the pain has progressivly gotten worse over the last few days and has been having associated chills. He denies constipation, change in bowel habits, fever, nausea, vomiting, drainage from rectum or bleeding, has not had a colonoscopy. He has been NPO since yesterday and took a sip of water at 1100 today. Does not take blood thinners. Principal Diagnosis nawaf rectal abscess Discharge Exam Constitutional well developed, cooperative and comfortable; no acute distress Respiratory normal respiratory effort and able to speak in complete sentences; no respiratory distress Musculoskeletal no cyanosis or clubbing, extremities motor strength 09/02 Discharge Data Allergies Allergy/AdvReac Type Severity Reaction Status Date / Time piperacillin [From Zosyn] Allergy Severe Verified 11/09/23 14:43 tazobactam [From Zosyn] Allergy Severe Verified 11/09/23 14:43 Sulfa (Sulfonamide Allergy Verified 11/09/23 14:16 Antibiotics) Consultations 11/09/23 14:57 ED Decision to Admit Stat Procedures Performed Operation Date: 11/09/23 11:10 Actual Procedures p Perianal Abscess Incision and Drainage(Not Applicable) - Cristian Nicolas, Ordered Studies 11/09/23 11:55 CT pelvis w/IV con only Stat Hospital Course (1) Perianal abscess: The patient presented to the [facility] ER 11/09/23 with complaint of rectal pain (see HPI for full details). A pelvic CT scan read the patient had 5.8 cm perianal abscess with possible associated perianal fistula, WBC was elevated at 12.8. While in the ER he was given zosyn , however started to develop a skin reaction (see ER notes for full details). He was then switched to Ciprofloxacin /Flagyl without reaction. He underwent an urgent Incision and drain of nawaf rectal abscess with Dr Nicolas on 11/09/23 and had a Lula drain place. He was admitted to the hospital over night for care and observation. He received ongoing IV antibiotics, was tolerating a regular diet and pain controlled. He was deemed stable for discharge on post operative day one 11/10/23. He was given a prescription for oral antibiotics and pain medication. He verbalized discharge instructions and follow up appointments. Total Time Total Time Spent Total Time Spent (In Minutes): 10 Discharge Plan Discharge Items Patient Disposition: Home - Self-Care Reason For Visit: NAWAF RECTAL ABCESS Discharge Diagnosis: incision and drainage of perianal abscess Activity: Per Instructions section Lifting: No more than 25 pounds Bathing Comment: may take warm tub soaks 3-4x/daily, and shower Exercise/Sports: Wait until after follow-up appointment Non-emergency contact: Surgeon Call non-emergency contact if: you have any medication questions, your symptoms worsen, your pain is worsening, you have a fever, your temperature is above 101.5, your wound has increased redness, your wound has increased drainage and your wound pain has increased Follow-up/Referrals: Cristian Slade, MUMTAZ [Primary Care Provider] - Cristian Nicolas DO [Surgeon] - 11/28/23 11:45 am (please call to schedule follow up in clinic within 2 weeks) Diet: Regular Addtl Attending Provider Instructions: complete the full course of antibiotic prescribed to you may take warm tub soaks/sitz baths 3-4x/daily , or shower may change dressing daily over incision with dry gauze/ABD pad/ and medical tape daily and as needed. alternatively you may keep a pad in your undergarments to help collect any drainage from the wound You have a lula drain that will need to be removed at your follow up appointment Pending Studies at Discharge: No Stand-Alone Forms: [facility] Medications and DC Order Prescriptions: New oxycodone 5 mg tablet 5 - 10 mg PO .[id number] MDD no more than 6 tabs in 24hours PRN (Reason: pain) Qty: 15 0RF ciprofloxacin HCl 500 mg tablet 500 mg PO Q12H 14 Days Qty: 28 0RF metronidazole 500 mg tablet 500 mg PO Q12H 14 Days Qty: 28 0RF Continued telmisartan 40 mg tablet 40 mg PO DAILY Qty: 90 2RF atorvastatin 20 mg tablet 20 mg PO QPM Qty: 90 2RF hydrocortisone [Proctozone-HC] 2.5 % cream with perineal applicator 1 applic [place] QID PRN (Reason: hemorrhoids) Qty: 30 0RF Zepbound 2.5 mg/0.5 mL pen injector 2.5 mg subcut WK Rx Instructions: Monday omega 7-eeh-udg-fish oil [Fish Oil] 1,200 (144-216) mg Capsule 1 cap PO DAILY Discontinued hydrocodone-acetaminophen 5-325 mg tablet 1 - 2 tab PO UD PRN (Reason: pain) Rx Instructions: 1-2 tabs PO Q4-6 HRS PRN; Discharge Orders: Discharge Order (Routine); Ordered 11/10/23 Ordered By: Liz Alan Admission Data Admit Date/Time: 11/09/23 21:08 Attending Provider: Cristian Nicolas Admit Provider: Cristian Nicolas Primary Care Provider: Cristian Slade Other Providers: Cristian Nicolas Coding Level of Care Code 28485 IN/OBS DISCH 30 MIN/LESS Diagnoses Perianal abscess K61.0
== END 2023-11-10 11:49 | disposition home or self-care (01) ==
LOC: ED 11:14 → OR 18:29 → 3E 18:29